=== PATIENT | male | born 1950 | race Caucasian/White ===

== ENCOUNTER 2017-10-09 16:15 | Emergency (ER) | payer OTHER, MEDICAID ==
--- NOTE | 2017-10-09 16:36 | EDPHY ---
General Time Seen by Provider: 10/09/17 16:32 Narrative: CHIEF COMPLAINT: Fall, rib pain HISTORY OF PRESENT ILLNESS: Patient presents with complaints of fall with left-sided rib pain. This happened 2 hr ago. He was working on some scaffolding when he slipped and fell , landing on a steel pipe. He struck the pipe with left ribs. He says that he did not injure himself anywhere else and has severe pain only in this area. He denies any headache, neck pain, back pain, extremity pain, numbness, tingling, difficulty walking. He does have severe left anterolateral rib pain, shortness of breath and difficulty taking a deep breath. No other associated complaints or modifying factors. REVIEW OF SYSTEMS: Ten systems reviewed and are negative unless otherwise noted in the HPI PCP: Dr. Quinton Marmolejo SPECIALISTS: Dr. Melvin Leyva PAST MEDICAL HISTORY: Osteoarthritis, spinal stenosis PAST SURGICAL HISTORY: Lower back diskectomy and fusion SOCIAL HISTORY: Denies tobacco use. Occasional alcohol use. Occasional marijuana use. Retired industrial equipment mechanic FAMILY HISTORY: Noncontributory EXAMINATION General Appearance: Alert, no distress. Well-developed well-nourished. Head: normocephalic, atraumatic. No Smith sign. No raccoon eyes. Depression or signs of trauma Eyes: Pupils equal and round, no conjunctival pallor or injection. EOM symmetric ENT, Mouth: Mucous membranes moist. Airway widely patent Neck: Midline trachea. Normal inspection, supple, non-tender. No crepitus or deformity Respiratory: Mild rhonchi. No wheezing, crackles or diminishment. Mild splinting with inspiration. Cardiovascular: Regular rate and rhythm. No murmur good signs of perfusion distally Gastrointestinal: Abdomen is soft and nontender Back: non-tender, no bony abnormalities Neurological: GCS 15. A&O, nonfocal, normal gait. Strength is symmetric in the extremities. Skin: Warm and dry, no rash. No petechiae or purpura no laceration, puncture ecchymosis Extremities: Nontender, no pedal edema Psychiatric: Mood and affect normal DIFFERENTIAL DIAGNOSES: Including but not limited to rib fracture, rib contusion, sprain, strain, hemothorax, pneumothorax MDM: 4:35 p.m. Mechanical fall with only complaint of left-sided anterolateral rib pain. He does have some shortness of breath but his vital signs are within normal limits room air. I have ordered chest x-ray two view to evaluate the area. I can auscultate sounds in all mcknight of the lungs at this time. Do not feel that pneumothorax is likely at this time 5:20 p.m. X-ray reveals nondisplaced rib fractures with consolidation suggesting atelectasis versus contusion. Given the patient's level of pain and his injury , I do feel he warrants a CT scan of the chest to further analyze this. I discussed with Dr. العلي, he agrees with this plan. 6:[address] p[address]. Notified by radiologist. CT scan of the chest reveals no evidence of parenchymal injury to the lung. There are rib fractures and chondral injuries. I have re-evaluated the patient discussed these findings. He says his pain is improving his breathing is easier. He does not want to stay in the hospital , nor do I feel he warrants admission. He has Percocet pain medication at home but only a few pills. I provided further prescription of this. We will apply a Lidoderm patch and instruct him on proper removal and interim between further dosing. We discussed good pulmonary hygiene. We discussed follow up with primary care physician this week for recheck for we discussed ED precautions for cough, fever, difficulty breathing or shortness of breath. He is comfortable this plan and discharged home stable condition. SUPERVISION: Patient was independently examined, but I discussed the case with my secondary supervising physician Dr. Shama العلي - Diagnostics Imaging Results: Imaging Impressions Chest X-Ray 10/09/17 16:37 Impression: 1. Left basilar consolidation: Contusion versus atelectasis 2. At least 2 nondisplaced left rib fractures. Chest CT 10/09/17 17:24 Impression: 1. Fractures associated with the anterolateral left seventh and eighth ribs as well as fracture involving the cartilage of the left seventh rib lateral to the sternum. 2. Compressive atelectatic change at the lung bases posteriorly above each hemidiaphragm left some of the right without pulmonary parenchymal contusion or pneumothorax. Findings discussed with Dr. العلي answering for [facility] at 18:24 hour, 10/09/2017. - History Smoking Status: Never smoked - Objective Vital Signs: Initial Vital Signs Temperature (C) 98.2 F 10/09/17 16:20 Heart Rate 88 10/09/17 16:20 Respiratory Rate 18 10/09/17 16:20 Blood Pressure 134/73 H 10/09/17 16:20 O2 Sat (%) 94 10/09/17 16:20 O2 Delivery Mode Room Air Allergies/Adverse Reactions: No Known Allergies Allergy (Unverified 10/09/17 16:20) Home Medications: Medication Instructions Recorded oxyCODONE HCL/ACETAMINOPHEN 1 each PO Q4-6PRN PRN #11 tablet 10/09/17 [Percocet 5-325 mg Tablet] Laboratory Results: Laboratory Results 10/09/17 17:40 10/09/17 10/09/17 10/09/17 17:51 17:40 17:40 WBC 7.59 10^3/uL 10^3/uL (3.80-9.50) RBC 5.39 10^6/uL 10^6/uL (4.40-6.38) Hgb 17.2 g/dL g/dL (13.7-17.5) POC Hgb 17.7 gm/dL H gm/dL (13.7-17.5) Hct 50.3 % % (40.0-51.0) POC Hct 52 % H % (40-51) MCV 93.3 fL fL (81.5-99.8) MCH 31.9 pg pg (27.9-34.1) MCHC 34.2 g/dL g/dL (32.4-36.7) RDW 14.1 % % (11.5-15.2) Plt Count 199 10^3/uL 10^3/uL (150-400) PT 13.2 SEC SEC (12.0-15.0) INR 0.98 (0.83-1.16) APTT 25.2 SEC SEC (23.0-38.0) POC Sodium 143 mEq/L mEq/L (135-145) POC Potassium 4.1 mEq/L mEq/L (3.3-5.0) POC Chloride 106 mEq/L mEq/L (97-110) POC BUN 23 mg/dL mg/dL (7-23) POC Creatinine 0.9 mg/dL mg/dL (0.7-1.3) POC Glucose 93 mg/dL mg/dL (70-100) Medications Given: Discontinued Medications Sodium Chloride (Ns) 1,000 mls @ 0 mls/hr IV EDNOW ONE; Wide Open PRN Reason: Protocol Stop: 10/09/17 17:25 Last Admin: 10/09/17 17:38 Dose: 1,000 mls Ketorolac Tromethamine (Toradol) 15 mg IVP EDNOW ONE Stop: 10/09/17 17:25 Last Admin: 10/09/17 17:38 Dose: 15 mg Miscellaneous Medication (Icy Hot Lidocaine/Menthol 4%/1% Patch) 1 patch TD EDNOW ONE Stop: 10/09/17 18:42 Last Admin: 10/09/17 18:49 Dose: 1 patch Point of Care Test Results: Chemistry 10/09/17 17:51 POC Sodium 143 mEq/L mEq/L (135-145) POC Potassium 4.1 mEq/L mEq/L (3.3-5.0) POC Chloride 106 mEq/L mEq/L (97-110) POC BUN 23 mg/dL mg/dL (7-23) POC Creatinine 0.9 mg/dL mg/dL (0.7-1.3) POC Glucose 93 mg/dL mg/dL (70-100) ISTAT H&H 10/09/17 17:51 POC Hgb 17.7 gm/dL H gm/dL (13.7-17.5) POC Hct 52 % H % (40-51) Departure - Departure Disposition: Home, Routine, Self-Care Clinical Impression: Multiple fractures of ribs, left side, initial encounter for closed fracture Blunt chest trauma Qualifiers: Encounter type: initial encounter Qualified Code(s): S29.8XXA - Other specified injuries of thorax, initial encounter Condition: Good Instructions: Lidocaine Patch (On the skin), Rib Fracture (ED) Additional Instructions: 1. Percocet pain medication as prescribed as needed 2. Lidocaine topical patches as discussed. You may by these [id number] and follow the directions on the box 3. Contact your primary care physician tomorrow morning to be re-evaluated later this week 4. Return here for worsening pain, shortness of breath, fever, cough or difficulty breathing Referrals: Quinton Marmolejo MD [Primary Care Provider] - As per Instructions Prescriptions: oxyCODONE HCL/ACETAMINOPHEN [Percocet 5-325 mg Tablet] 1 each PO Q4-6PRN PRN # 11 tablet PRN Reason: Pain, Breakthrough
[2017-10-09] MEDS ORDERED: KETOROLAC 15 MG/1 ML SDV IVP ONE (17:24)
[2017-10-09] MEDS ORDERED: NS 1,000 ML IV ONE (17:24)
[2017-10-09] MEDS ORDERED: IOPAMIDOL (ISOVUE-300) 100 ML BTL ONE (17:33)
[2017-10-09 18:01] LABS: INR 0.98 (0.83-1.16); PROTIME(PATIENT) 13.2 SEC (12.0-15.0)
[2017-10-09] MEDS ORDERED: LIDOCAINE 4%/MENTHOL 1% PATCH TD ONE (18:41)
[2017-10-09 18:57] VITALS: BP 145/89
[2017-10-09] MEDS ORDERED: PATCH REMOVAL 1 EA PATCH TD SCH (21:00)
== END 2017-10-09 18:57 | disposition home or self-care (01) ==
DX: S22.32XA Fracture of one rib, left side, initial encounter for closed fracture (principal); S29.8XXA Other specified injuries of thorax, initial encounter; E86.9 Volume depletion, unspecified; W12.XXXA Fall on and from scaffolding, initial encounter; Y92.89 Other specified places as the place of occurrence of the external cause; Y99.0 Civilian activity done for income or pay; Y93.89 Activity, other specified
CPT/HCPCS: 71046; 71260; 96361; 96374; 99285; J1885; Q9967; 82435-PO; 82565-PO; 82947-PO; 84132-PO; 84295-PO; 84520-PO; 85014-PO